=== PATIENT | male | born 1950 | race Caucasian/White ===

== ENCOUNTER 2017-11-22 11:46 | Emergency (ER) | payer MEDICARE ==
--- NOTE | 2017-11-22 11:58 | ER Document Report ---
ED Medical Screen (RME) - General Chief Complaint: Other Stated Complaint: POSSIBLE ESOPHAGEAL MASS Time Seen by Provider: 11/22/17 11:56 Mode of Arrival: Wheelchair Information source: Patient Notes: Patient is a 67-year-old male who was sent here by Dr. Salguero directly from the office to be transferred to [facility]. Patient [facility] apparently has an [facility] esophageal [facility]. Patient is yelling at me that he does not need blood work or a CAT scan as he just had this done. Patient is obviously in no respiratory distress as he is able to talk and yell at me today. TRAVEL OUTSIDE OF THE [place] IN LAST 30 DAYS: No - Related Data Allergies/Adverse Reactions: No Known Allergies Allergy (Verified 01/09/13 12:50) Past Medical History - General Information source: Patient - Past Medical History Cardiac Medical History: Reports: Hx Hypertension - Immunizations Hx Diphtheria, Pertussis, Tetanus Vaccination: Yes Review of Systems - Review of Systems Cardiovascular: See HPI Respiratory: See HPI Physical Exam - Notes Notes: PHYSICAL EXAMINATION: GENERAL: Well-appearing and in no acute distress. LUNGS: CTAB and equal. No wheezes rales or rhonchi. HEART: Regular rate and rhythm without murmurs
--- NOTE | 2017-11-22 12:20 | ER Document Report ---
ED General - General Chief Complaint: Other Stated Complaint: POSSIBLE ESOPHAGEAL MASS Time Seen by Provider: 11/22/17 11:56 Mode of Arrival: Wheelchair Information source: Patient Notes: 67-year-old male with a history of lung mass and esophageal mass with possible perforation noted on CT today presents from Dr. Salguero office with request to be transferred to [facility]. Salguero spoke with Dr. Cho the surgeon there. Patient notes that he has been coughing for the past month has not been feeling well there has been no voice change. Patient has been able to eat intermittently. Patient denies coughing of blood Patient was placed on Rocephin yesterday and Levaquin for home TRAVEL OUTSIDE OF THE [place] IN LAST 30 DAYS: No - HPI Onset: Other Onset/Duration: Persistent Quality of pain: Achy Severity: Mild Pain Level: 1 Associated symptoms: Productive cough, Other Exacerbated by: Denies Relieved by: Denies Similar symptoms previously: Yes Recently seen / treated by doctor: Yes - Related Data Allergies/Adverse Reactions: No Known Allergies Allergy (Verified 01/09/13 12:50) Past Medical History - General Information source: Patient - Social History Smoking Status: Current Every Day Smoker Cigarette use (# per day): Yes Chew tobacco use (# tins/day): No Smoking Education Provided: No Family History: Reviewed & Not Pertinent - Past Medical History Cardiac Medical History: Reports: Hx Hypertension - Immunizations Hx Diphtheria, Pertussis, Tetanus Vaccination: Yes Review of Systems - Review of Systems Notes: REVIEW OF SYSTEMS: CONSTITUTIONAL : Denies fever, chills, or sweats. Denies recent illness. EENT: Admits to sore throat CARDIOVASCULAR: Denies chest pain. Denies palpitations or racing or irregular heart beat. Denies ankle edema. RESPIRATORY: Admits to cough congestion GASTROINTESTINAL: Denies abdominal pain or distention. Denies nausea, vomiting , or diarrhea. Denies blood in vomitus, stools, or per rectum. Denies black, tarry stools. Denies constipation. GENITOURINARY: Denies difficulty urinating, painful urination, burning, frequency, blood in urine, or discharge. MUSCULOSKELETAL: Denies back or neck pain or stiffness. Denies joint pain or swelling. SKIN: Denies rash, lesions or sores. HEMATOLOGIC : Denies easy bruising or bleeding. LYMPHATIC: Denies swollen, enlarged glands. NEUROLOGICAL: Denies confusion or altered mental status. Denies passing out or loss of consciousness. Denies dizziness or lightheadedness. Denies headache. Denies weakness or paralysis or loss of use of either side. Denies problems with gait or speech. Denies sensory loss, numbness, or tingling. Denies seizures. PSYCHIATRIC: Denies anxiety or stress. Denies depression, suicidal ideation, or homicidal ideation. ALL OTHER SYSTEMS REVIEWED AND NEGATIVE. Dictation was performed using [employer] voice recognition software PHYSICAL EXAMINATION: GENERAL: Thin male HEAD: Atraumatic, normocephalic. EYES: Pupils equal round and reactive to light, extraocular movements intact, sclera anicteric, conjunctiva are normal. ENT: Nares patent, oropharynx clear without exudates. Moist mucous membranes. NECK: Normal range of motion, supple without lymphadenopathy LUNGS: Rhonchi all throughout HEART: Regular rate and rhythm without murmurs ABDOMEN: Soft, nontender, nondistended abdomen. No guarding, no rebound. No masses appreciated. Musculoskeletal: Normal range of motion, no pitting or edema. No cyanosis. NEUROLOGICAL: Cranial nerves grossly intact. Normal speech, normal gait. Normal sensory, motor exams PSYCH: Normal mood, normal affect. SKIN: Warm, Dry, normal turgor, no rashes or lesions noted. Physical Exam - Vital signs Vitals: Temp Pulse Resp BP Pulse Ox 97.5 F 61 18 86/45 L 93 11/22/17 12:02 11/22/17 12:02 11/22/17 12:02 11/22/17 12:02 11/22/17 12:02 Course - Re-evaluation Re-evalutation: 11/22/17 12:[address] Cho surgeon , spoke with patient nad explained findings , she accepts to her service asks for gastrografin study 11/22/17 12:22 11/22/17 14:34 Patient is noted to be hypotensive upon arrival IV was placed fluids were bolused, blood pressure did improve, Gastrografin study pending patient waiting for transfer - Vital Signs Vital signs: Temp Pulse Resp BP Pulse Ox 97.5 F 61 11 L 107/58 L 97 11/22/17 12:02 11/22/17 12:02 11/22/17 13:30 11/22/17 13:30 11/22/17 13:09 - Laboratory Result Diagrams: 11/22/17 13:15 11/22/17 13:15 Laboratory results interpreted by me: 11/22/17 11/22/17 13:15 13:15 WBC 22.0 H Hgb 12.9 L Seg Neuts % (Manual) 83 H Band Neutrophils % 2 L Lymphocytes % (Manual) 6 L Abs Neuts (Manual) 18.7 H Abs Monocytes (Manual) 1.8 H Sodium 134.8 L Chloride 93 L Carbon Dioxide 31 H BUN 55 H Creatinine 1.78 H Est GFR ( Amer) 46 L Est GFR (Non-Af Amer) 38 L Calcium 12.6 H* Direct Bilirubin 0.5 H AST 60 H ALT 76 H Alkaline Phosphatase 260 H Total Protein 5.8 L Albumin 3.0 L Critical Care Note - Critical Care Note Total time excluding time spent on procedures (mins): 50 Comments: 50 minutes of critical care time spent in direct contact evaluating and reevaluating the patient, treating symptoms, reviewing labs and studies and speaking with family and consultants excluding any procedures Discharge - Discharge Clinical Impression: Lung mass, Esophageal mass Sepsis Qualifiers: Sepsis type: sepsis due to unspecified organism Qualified Code(s): A41.9 - Sepsis, unspecified organism Condition: Stable Disposition: [facility]
[2017-11-22] MEDS ORDERED: NORMAL SALINE 1000 ML 1,000 ML IV ONE ×2 (12:21→14:21)
[2017-11-22] MEDS ORDERED: CEFTRIAXONE 1 GM/D5W RTU 1 GM/50 ML RTUPB IV ONE (12:28)
[2017-11-22 13:27] LABS: HEMATOCRIT 39.5 % (37.9-51.0); HEMOGLOBIN 12.9 g/dL (13.5-17.0); MEAN CORPUSCULAR HEMOGLOBIN 27.2 pg (27.0-33.4); MEAN CORPUSCULAR HGB CONC 32.8 g/dL (32.0-36.0); MEAN CORPUSCULAR VOLUME 83 fl (80-97); PLATELET COUNT 410 10^3/uL (150-450); RED BLOOD COUNT 4.76 10^6/uL (4.35-5.55); RED CELL DISTRIBUTION WIDTH 13.9 % (11.5-14.0)
[2017-11-22 13:51] LABS: ALANINE AMINOTRANSFERASE 76 U/L (21-72); ALKALINE PHOSPHATASE 260 U/L (38-126); ANION GAP 11 (5-19); ASPARTATE AMINO TRANSFERASE 60 U/L (17-59); BILIRUBIN,DIRECT 0.5 mg/dL (0.0-0.4); BILIRUBIN,TOTAL 0.7 mg/dL (0.2-1.3); BLOOD UREA NITROGEN 55 mg/dL (7-20); CARBON DIOXIDE 31 mmol/L (22-30); CHLORIDE 93 mmol/L (98-107); GLUCOSE 108 mg/dL (75-110); POTASSIUM 3.8 mmol/L (3.6-5.0); SODIUM 134.8 mmol/L (137-145); TOTAL PROTEIN 5.8 g/dL (6.3-8.2)
[2017-11-22 14:04] LABS: CALCIUM 12.6 mg/dL (8.4-10.2)
[2017-11-22 14:06] LABS: ABSOLUTE LYMPHOCYTES# (MANUAL) 1.5 10^3/uL (0.5-4.7); ABSOLUTE MONOCYTES # (MANUAL) 1.8 10^3/uL (0.1-1.4); ABSOLUTE NEUTROPHILS# (MANUAL) 18.7 10^3/uL (1.7-8.2); BAND NEUTROPHILS % (MANUAL) 2 % (3-5); BASOPHILS % (MANUAL) 0 % (0-2); EOSINOPHILS % (MANUAL) 0 % (0-6); LYMPHOCYTES % (MANUAL) 6 % (13-45); MONOCYTES % (MANUAL) 8 % (3-13); PLATELET COMMENT ADEQUATE; RBC MORPHOLOGY COMMENT NORMO-CYTIC/CHROMIC; SEGMENTED NEUTROPHILS % (MAN) 83 % (42-78); TOTAL CELLS COUNTED 100; TOXIC GRANULATION SLIGHT; TOXIC VACUOLATION PRESENT
[2017-11-22] MEDS ORDERED: CEFTRIAXONE SODIUM 1,000 MG in DEXTROSE 5%-WATER 50 ML IV ONE (15:00)
--- NOTE | 2017-11-22 15:09 | RADIOLOGY REPORT (SQ) ---
EXAM DESCRIPTION: BARIUM SWALLOW ESOPHAGUS COMPLETED DATE/TIME: 11/22/2017 2:15 pm REASON FOR STUDY: thin barium or gastrografin esophageal cancer, COMPARISON: CT chest 11/22/2017 TECHNIQUE: Under fluoroscopic guidance, patient ingested Isovue 370. Fluoroscopic spot images and ro utine radiographic images acquired and stored on PACS. 12 MM BARIUM TABLET GIVEN: No 12 mm barium tablet was not given LIMITATIONS: None. FLUOROSCOPY TIME: 0.7 minutes 10 series of digital images saved to PACS. FINDINGS: In the mid 3rd of the esophagus, from the top of the aortic arch through the level of the upper left atrium, there is a mass involving the esophagus measuring at least 9 to 10 cm in greatest craniocaudad length. Marked luminal narrowing and luminal irregularity of the mid 3rd esophagus is p resent. At about the level of the right mainstem bronchus, there is extravasation of contrast from the esopha palomo into the right chest. Area of concern for esophageal leakage is marked with an arrow on the imag es. There is normal swallowing mechanism, upper 3rd of the esophagus and distal 3rd of the esophagus are unremarkable. No hiatal hernia. No gastroesophageal reflux. There is opacification through the right lower hemithorax from a large intrathoracic abscess better d emonstrated on CT earlier today IMPRESSION: Malignant appearing mass along the mid 3rd of the esophagus with small amount of contras t extravasation at the level of the right hilum/mainstem bronchus into the right chest. COMMENT: Quality ID [id number]: Final reports for procedures using fluoroscopy that document radiation exp osure indices, or exposure time and number of fluorographic images (if radiation exposure indices are not available) TECHNICAL DOCUMENTATION: JOB ID: [id number] [employer]- All Rights Reserved
[2017-11-22] MEDS ORDERED: MORPHINE SULFATE 10 MG/ML INJ IV ONE (15:54)
[2017-11-22 17:28] VITALS: BP 94/67
--- NOTE | 2017-11-22 17:38 | ER Document Report ---
Doctor's Note Notes: 11/22/17 17:37 Dr. Angel was with a critical patient, transport is here for this patient who remains tachycardic and hypotensive, but in need of emergent transport for definitive. I re-examined patient, explained risks of transport and he is stable for transport at this time.
== END 2017-11-22 17:40 | disposition short-term general hospital (02) ==
LOC: ER 11:46
DX: K22.8 Other specified diseases of esophagus (principal); R91.8 Other nonspecific abnormal finding of lung field; A41.9 Sepsis, unspecified organism; F17.210 Nicotine dependence, cigarettes, uncomplicated; I10 Essential (primary) hypertension; R00.0 Tachycardia, unspecified; I95.9 Hypotension, unspecified
CPT/HCPCS: 99291; 96361; 96375; 96365; 36415; 87040; 85025; 80053; 83605; 74220; 71260; J2270; J0696; J7030

== ENCOUNTER → 2017-11-22 | Outpatient (CLI) | payer MEDICARE ==
--- NOTE | 2017-11-22 09:47 | RADIOLOGY REPORT (SQ) ---
EXAM DESCRIPTION: CT CHEST WITH COMPLETED DATE/TIME: 11/22/2017 8:14 am REASON FOR STUDY: OTHER NONSPECIFIC ABN FINDING OF LUNG FIELD (R91.8) R91.8 OTHER NONSPECIFIC ABNOR MAL FINDING OF LUNG FIELD COMPARISON: None. TECHNIQUE: CT scan of the chest performed using helical scanning technique with dynamic intravenous contrast injection. Images reviewed with lung, soft tissue and bone windows. Reconstructed coronal and sagittal MPR images reviewed. All images stored on PACS. All CT scanners at this facility use dose modulation, iterative reconstruction, and/or weight based d osing when appropriate to reduce radiation dose to as low as reasonably achievable (ALARA). [facility]: Dose Right [facility]: CareDose [facility]: Dose Right [facility]: Teradose 4D [facility]: DJO Global CONTRAST TYPE AND DOSE: contrast/concentration: Isovue 370.00 mg/ml; Total Contrast Delivered: 80.0 ml; Total Saline Delivered: 43.6 ml RENAL FUNCTION: Creatinine 0.9 RADIATION DOSE: CT Rad equipment meets quality standard of care and radiation dose reduction techniq ues were employed. CTDIvol: 15.9 mGy. DLP: 649 mGy-cm. . LIMITATIONS: None. FINDINGS: Along the mid third of the esophagus, a 6.5 cm transverse by 3.7 cm AP x 9 cm craniocaudad enhancing esophageal mass is present. This is worrisome for primary esophageal malignancy. There is a probable contained perforation in the right posterior pleural space with a thick walled pe ripheral enhancing abscess. This measures 13 cm transverse by 10 cm AP by 21 cm craniocaudad. LUNGS AND PLEURA: No fluffy alveolar infiltrates worrisome for pulmonary edema or pneumonia. Benign calcified granuloma right upper lobe axial image 28. No left-sided significant infiltrates pleural l esions. HILAR AND MEDIASTINAL STRUCTURES: Esophageal mass as above. There is a 1.1 x 0.6 cm prevascular lymp h node on axial image 18. There are right retrocrural lymph nodes as follows: 8 x 8 mm image 57 1.2 x 0.7 cm image 65 1.3 x 0.9 cm image 62 HEART AND VASCULAR STRUCTURES: No aneurysm or dissection. No central pulmonary emboli. No pericardi al effusion. Moderate [place] coronary artery calcification. Calcified aortic valve leaflets HARDWARE: None in the chest. UPPER ABDOMEN: No significant findings. Limited exam. THYROID AND OTHER SOFT TISSUES: No masses. No adenopathy. BONES: No significant finding. OTHER: No other significant finding. IMPRESSION: Large esophageal mass with probable contained perforation and large right hemithorax ple ural space abscess. This report was discussed with Dr Salguero, 0930 hours, 11/22/2017 TECHNICAL DOCUMENTATION: JOB ID: [id number] Quality ID # [id number]: Final reports with documentation of one or more dose reduction techniques (e.g., Au tomated exposure control, adjustment of the mA and/or kV according to patient size, use of iterative reconstruction technique) 2010 [employer]- All Rights Reserved
== END ==
LOC: RAD 07:09
PROVIDERS: ATTEND Family Medicine
DX: R91.8 Other nonspecific abnormal finding of lung field (principal); R22.1 Localized swelling, mass and lump, neck
CPT/HCPCS: 71260